=== PATIENT | female | born 1955 | race Caucasian/White ===

== ENCOUNTER 2022-01-06 15:23 | Emergency (ER) | payer MEDICARE, SELFPAY ==
[2022-01-06] VITALS (8 sets, daily range): BP systolic 141–170; BP diastolic 64–67; PULSE 70–81; RESP 16–20; TEMP 36.8–37.3; O2SAT 91–98
--- NOTE | ~2022-01-06 | XR_ITS ---
XR chest 2V DATE: 01/06/2022 17:35 INDICATION: Dyspnea TECHNIQUE: PA and lateral views COMPARISON: None FINDINGS: There is bilateral hyperinflation with relative flattening the diaphragm and increased retr osternal airspace, consistent with COPD. There is blunting of both costophrenic angles which may be chronic or due to small pleural effusions. A medical records assistant overlies the upper left heart. There is an electronic implanted monitor device in th e lower left anterior chest. Hilar or mediastinal enlargement. No pulmonary infiltrate or consolidation, pleural effusion or pulmo nary vascular congestion or pneumothorax. Osteopenia. IMPRESSION: Bilateral hyperinflation suggesting COPD Chronic pleural thickening versus small pleural effusions causing blunting of both costophrenic angle s Reviewed, dictated and finalized at location [facility] IMPRESSION: Bilateral hyperinflation suggesting COPD Chronic pleural thickening versus small pleural effusions causing blunting of b oth costophrenic angles
--- NOTE | 2022-01-06 15:25 | ECG_ITS ---
Measurements Intervals [place] Rate: 67 P: 27 DC: 138 QRS: 76 QRSD: 88 T: 49 QT: 437 QTc: 464 Interpretive Statements SINUS RHYTHM NORMAL ECG NO PREVIOUS ECG AVAILABLE FOR COMPARISON Electronically Signed On 01-07-2022 8:50:31 [employer] SCI[employer] by Jesus Hernandez D.O.
[2022-01-06 15:45] LABS: Basophils Absolute Auto 0.1 K/mm3 (0.0-0.1); Basophils Percent Auto 0.8 % (0.2-1.2); Eosinophils Absolute Auto 0.2 K/mm3 (0-0.3); Eosinophils Percent Auto 1.4 % (0-4.4); Immature Granulocyte Percent A 0.9 % (0-0.5); Lymphocytes Absolute Auto 0.37 K/mm3 (0.9-3.2); Lymphocytes Percent Auto 3.2 % (18.3-44.2); Mean Corpuscular HGB Conc 31.7 g/dl (32-36); Mean Corpuscular Volume 107.3 fl (80-100); Monocytes Absolute Auto 0.2 K/mm3 (0.1-0.6); Neutrophils Absolute Auto 10.8 K/mm3 (1.3-6.7); Neutrophils Percent Auto 91.7 % (45.5-73.1); Platelet Count Result 566 k/mm3 (150-375); Red Blood Count 3.82 M/mm3 (4.2-5.4); Red Cell Distribution Width 18.4 % (11.5-14.5); White Blood Count 11.7 K/mm3 (4.5-10.0)
[2022-01-06 15:58] LABS: Alanine Aminotransferase 21 U/L (6-35); Albumin Level 4.3 g/dL (3.5-5.1); Alkaline Phosphatase 95 U/L (38-126); Anion Gap 9 mmol/L (8-16); Aspartate Amino Transferase 21 U/L (14-36); Bilirubin,Total 0.9 mg/dL (0.2-1.3); Blood Urea Nitrogen 12 mg/dL (7-17); Calcium 9.2 mg/dL (8.4-10.2); Carbon Dioxide 21 mmol/L (22-30); Chloride 105 mmol/L (98-107); Estimated CRCL calculation 60 ml/min; Estimated Glomerular Filt Rate > 60; Glucose 97 mg/dL (65-110); Potassium 4.3 mmol/L (3.4-5.0); Sodium 135 mmol/L (137-145)
[2022-01-06 16:07] LABS: NT Pro B Type Natriuretic Pept 2010 pg/mL (5-100)
[2022-01-06 16:13] LABS: Anisocytosis 1+ (NORMAL); Platelet Estimate Increased (Adequate)
[2022-01-06 16:14] LABS: Macrocytosis 1+ (NORMAL); Ovalocytes 1+ (NORMAL); Schistocytes None Seen (NORMAL)
[2022-01-06 16:20] LABS: Influenza A QL RT-PCR Positive (Negative); Influenza B QL RT-PCR Negative (Negative); RSV RNA, RT-PCR Negative (Negative); SARS-CoV-2 RNA PCR Negative
--- NOTE | 2022-01-06 21:30 | ED.GENADULT ---
HPI - General Adult General Chief complaint: Shortness of Breath/Dyspnea Stated complaint: pneumonia or fluid in my lungs Time Seen by Provider: 01/06/22 20:09 History of Present Illness HPI narrative: 66-year-old female presented to the emergency department evaluation of cough congestion with associated weakness has been worsening since yesterday. Patient does have history of blood cancer for which she takes hydroxyurea for. Patient recently moved to the area from [place] and has no local primary care physician or oncologist. Patient does live at home on her own and is concerned taking care of herself. Patient does have history of A. fib and is currently rate controlled. Patient denies any prior history of congestive heart failure. Related Data Home Medications Medication Instructions Recorded Confirmed amiodarone 200 mg tablet mg 01/06/22 dexamethasone 0.5 mg/5 mL oral mg 01/06/22 01/06/22 elixir diltiazem HCl 240 mg mg PO 01/06/22 capsule,extended release 24 hr hydroxyurea 500 mg capsule 01/06/22 levothyroxine 75 mcg tablet mcg 01/06/22 pantoprazole 40 mg tablet,delayed mg PO 01/06/22 release valsartan 320 mg tablet mg 01/06/22 Allergies Allergy/AdvReac Type Severity Reaction Status Date / Time erythromycin base Allergy Nausea and Verified 01/06/22 15:24 Vomiting Review of Systems Review of Systems: CONSTITUTIONAL: Generalized weakness EYES: Denies visual changes, redness, or discharge. ENT: Denies rhinorrhea, congestion, sore throat, or otalgia. CARDIOVASCULAR: Denies chest pain, palpitations, or edema. RESPIRATORY: Cough and congestion GASTROINTESTINAL: Denies abdominal pain, nausea, vomiting, or diarrhea. GENITOURINARY: Denies dysuria or hematuria. SKIN: Denies rash or itching. MUSCULOSKELETAL: Denies back pain, joint pain, or myalgia. NEUROLOGIC: Denies headache, numbness, or weakness. Exam Narrative: APPEARANCE: Well appearing, no pain, no distress, well-nourished. HEAD: normocephalic, atraumatic. EYES: PERRLA/EOMI, conjunctivae clear. NOSE: Normal no drainage EARS:TMS clear with good light reflex. THROAT: Pharynx clear, no exudate. NECK: Supple. No adenopathy, no masses. RESPIRATORY: Airway patent, respirations nonlabored. Clear to auscultation bilaterally, no rales, rhonchi, wheezing. CARDIOVASCULAR: Regular rate and rhythm without murmurs rubs or gallops. ABDOMINAL: Soft, nontender, nondistended, normal bowel sounds MUSCULOSKELETAL: Moves all extremities. Strength/ROM intact, No edema, No calf tenderness. NEURO: Alert. Cranial nerves II through XII intact. Good gait. Good coordination SKIN: Warm, dry. Normal Color PSYCHIATRIC: Normal affect/mood. Course Course Emergency Course: Patient did test positive for influenza A. Patient reports she did feel improved with treatment. Patient is requesting discharge to home. Patient was educated on reasons to return to the emergency department. All question concerns were addressed Vital Signs Vital signs: Vital Signs Temperature 99.2 F 01/06/22 15:25 Pulse Rate 72 01/06/22 15:25 Respiratory Rate 19 01/06/22 15:25 Blood Pressure 170/64 H 01/06/22 15:25 Pulse Oximetry 98 01/06/22 15:25 Temperature 98.2 F 01/06/22 18:01 Pulse Rate 78 01/06/22 23:21 Respiratory Rate 18 01/06/22 23:21 Blood Pressure 141/67 H 01/06/22 23:21 Pulse Oximetry 96 01/06/22 23:21 Oxygen Delivery Room Air 01/06/22 20:08 Medical Decision Making Vital Signs Vital Signs: Vital Signs Temperature 99.2 F 01/06/22 15:25 Pulse Rate 72 01/06/22 15:25 Respiratory Rate 19 01/06/22 15:25 Blood Pressure 170/64 H 01/06/22 15:25 Pulse Oximetry 98 01/06/22 15:25 Temperature 98.2 F 01/06/22 18:01 Pulse Rate 78 01/06/22 23:21 Respiratory Rate 18 01/06/22 23:21 Blood Pressure 141/67 H 01/06/22 23:21 Pulse Oximetry 96 01/06/22 23:21 Oxygen Delivery Room Air 01/06/22 20:08 Lab Data
[2022-01-06] MEDS: BENZONATATE 100 MG CAPSULE PO (21:39)
[2022-01-06] MEDS: ALBUTEROL SULFATE NEB 2.5 MG/3 ML INH 5 MG INHALATION (21:51)
== END 2022-01-06 23:20 | disposition home or self-care (01) ==
PROVIDERS: Emergency Provider Emergency Medicine
DX: J10.1 Influenza due to other identified influenza virus with other respiratory manifestations (principal); J44.9 Chronic obstructive pulmonary disease, unspecified; Z20.822 Contact with and (suspected) exposure to COVID-19
CPT/HCPCS: 36415; 71046; 80053; 83880; 85025; 87637; 93005; 94640; 99284; A9270